=== PATIENT | female | born 1990 | race Caucasian/White ===

== ENCOUNTER 2017-10-02 13:40 | Emergency (ER) | payer MEDICAID, OTHER ==
[~2017-10-02] VITALS: Wt 64.9 kg
[2017-10-02] MEDS ORDERED: SOD CHLORIDE 0.9% 1,000 ML IV STA (14:25)
[2017-10-02] MEDS ORDERED: HYDROmorphONE 1 MG/ML SYG IV STA (14:25)
--- NOTE | 2017-10-02 14:58 | ERD ---
ER Documentation Chief Complaint Chief Complaint 12 WEEKS WITH BLEEDING TODAY HPI 27-year-old female, at 10 weeks by LMP 07/24/17, presents to the emergency department complaining of heavy bleeding that started this morning associated with passing clots and constant cramping pain, 04/13. Denies history of trauma. No fever, no chills, no urinary symptoms. Positive care. History provided by patient. ROS SYSTEMIC symptoms: no fever, chills, no night sweats, no weight loss EYE symptoms: No blurred vision, no eye discharge OTOLARYNGEAL symptoms: No hearing loss. No ear pain, no sore throat CARDIOVASCULAR symptoms: No chest pain or discomfort, no palpitations. PULMONARY symptoms: No dyspnea, no cough, no wheezing. GASTROINTESTINAL symptoms: (+) abdominal pain, no nausea, no vomiting, no diarrhea MUSCULOSKELETAL symptoms: No arthralgias, no muscle aches. NEUROLOGY symptoms: No confusion, no syncope, no numbness or tingling. SKIN: No rashes Medications Home Meds Active Scripts Hydrocodone/Acetaminophen ([place] 5-325 Tablet) 1 Each Tablet, 1 TAB PO Q6H Y for PAIN, #12 TAB Prov:ANA LUCAS MD 10/02/17 Allergies Allergies: Coded Allergies: No Known Allergies (Verified Allergy, Mild, 10/02/17) PMhx/Soc History of Surgery: Yes (c section x 3 ) Anesthesia Reaction: No Hx Neurological Disorder: No Hx Respiratory Disorders: No Hx Cardiac Disorders: No Hx Psychiatric Problems: No Hx Miscellaneous Medical Probl: No Hx Alcohol Use: No Hx Substance Use: No Hx Tobacco Use: No Physical Exam Vitals Vital Signs Date Time Temp Pulse Resp B/P Pulse Ox O2 Delivery O2 Flow Rate FiO2 10/02/17 17:58 98.6 79 16 101/46 98 Room Air 10/02/17 13:42 98.9 86 18 110/58 99 Physical Exam Patient is in moderate distress, vital signs stable. Alert and fully oriented. EYES: PERRLA, EOMI, Sclera and conjunctiva appear normal. EARS: Canals clear, tympanic membranes WNL THROAT: Normal oropharynx. NECK: Supple, No lymphadenopathy. Full ROM without pain or tenderness. HEART: RRR, no rubs, murmurs, clicks or gallops. LUNGS: Clear to auscultation. ABDOMEN: Soft, non-tender without masses or hepatosplenomegaly. EXTREMITIES: No edema bilaterally. BACK: Full ROM, no deformity, normal back exam NEURO: Cranial nerves grossly intact, no motor or sensory deficit Result Diagram: 10/02/17 1456 10/02/17 1456 Results 24 hrs Laboratory Tests Test 10/02/17 14:56 White Blood Count 9.010^3/ul Red Blood Count 4.4510^6/ul Hemoglobin 12.6g/dl Hematocrit 36.7% Mean Corpuscular Volume 82.5fl Mean Corpuscular Hemoglobin 28.3pg Mean Corpuscular Hemoglobin Concent 34.3g/dl Red Cell Distribution Width 13.3% Platelet Count 69276^3/UL Mean Platelet Volume 11.6fl Neutrophils % 65.1% Lymphocytes % 21.1% Monocytes % 6.5% Eosinophils % 6.6% Basophils % 0.4% Nucleated Red Blood Cells % 0.0/100WBC Neutrophils # 5.910^3/ul Lymphocytes # 1.910^3/ul Monocytes # 0.610^3/ul Eosinophils # 0.610^3/ul Basophils # 0.010^3/ul Nucleated Red Blood Cells # 0.010^3/ul Sodium Level 140mmol/L Potassium Level 3.3mmol/L Chloride Level 102mmol/L Carbon Dioxide Level 27mmol/L Anion Gap 14 Blood Urea Nitrogen 10mg/dl Creatinine 0.71mg/dl Glucose Level 88mg/dl Calcium Level 9.5mg/dl Total Bilirubin 0.2mg/dl Direct Bilirubin 0.00mg/dl Indirect Bilirubin 0.2mg/dl Aspartate Amino Transf (AST/SGOT) 25IU/L Alanine Aminotransferase (ALT/SGPT) 37IU/L Alkaline Phosphatase 59IU/L Total Protein 7.5g/dl Albumin 4.3g/dl Globulin 3.20g/dl Albumin/Globulin Ratio 1.34 Beta HCG, Quantitative 3901.4mIU/ml Current Medications Medications (Trade) Dose Ordered Sig/Wendi Route PRN Reason Start Time Stop Time Status Last Admin Dose Admin Sodium Chloride (NS) 1,000 ml @ 1,000 mls/hr Q1H STAT IV 10/02/17 14:25 10/02/17 15:24 DC 10/02/17 14:49 Hydromorphone HCl (Dilaudid) 0.5 mg ONCE STAT IV 10/02/17 14:25 10/02/17 14:28 DC 10/02/17 14:49 [place] [id number] Radiology Main Line: [phone] DIAGNOSTIC IMAGING REPORT Patient: RYNE VARGAS : 1990 Age: 27 Sex: F MR #: [id number] DOS: 10/02/17 1425 Ordering MD: ANA LUCAS MD Location: [facility] Room/Bed: PROCEDURE: US Pelvis. CLINICAL INDICATION: vaginal bleeding TECHNIQUE: Multiple sonographic images of the pelvis were obtained utilizing a transabdominal and endovaginal technique. The images were reviewed on a PACS workstation. COMPARISON: None. FINDINGS: The uterus is normal in size and demonstrates a normal appearance of the myometrium. The endometrial stripe is heterogeneous in appearance and has the thickness of 26 mm. There is a gestational sac with a possible pole measuring 1.8 cm in the vaginal canal, corresponding to a 8-week and 2 days gestation. No heart tones are noted. The ovaries are normal in size and echogenicity. The right ovary measures 2.9 x 1.8 x 2.0 cm. The left ovary measures 2.4 x 1.4 x 1.8 cm. No free fluid is present within the pelvis.. RPTAT: AA IMPRESSION: Findings consistent with an in progress. A possible pole versus hematoma is seen within the vaginal canal. Heterogeneous endometrium. Follow-up ultrasound and HCG levels is recommended. .Luis Valdez MD, MD Date Time Electronically viewed and signed by .Luis Valdez MD, on 10/02/2017 15: 49 .S/ CC: ANA LUCAS MD Procedures/MDM 27y/o female patient at approximately 10 weeks weeks per last menstrual period, presents to the ED c/o worsening of vaginal bleeding that started this morning associated with cramping pain and passing big clots. Vital signs stable. Differential diagnosis include but not limited to: UTI, threatening , incomplete versus complete , ectopic , physiologic implantation bleeding, molar . Pertinent Data: Labs: CBC: normal, CMP: normal kidney and liver function, normal electrolytes. During the ED course during the pelvic exam a gestational sac was observed in the vaginal canal which was carefully removed with O-ring forceps. The patient remained hemodynamically stable, cervix 1 cm open with minimal bleeding.. Results and clinical impression discussed with patient who agrees with management. The patient is stable to be treated outpatient and will be discharged home with close monitoring and follow-up in 2 days with her primary physician. Bed rest and pelvic rest recommended until further medical evaluation. The patient was instructed regarding the outcomes and the potential complications like severe bleeding. If the patient presents severe bleeding or pain, she was instructed to return to the hospital immediately. Disclaimer: Inadvertent spelling and grammatical errors are likely due to EHR/ dictation software use and do not reflect on the overall quality of patient care. Also, please note that the electronic time recorded on this note does not necessarily reflect the actual time of the patient encounter. Departure Diagnosis: Primary Impression: Inevitable Condition: Stable Additional Instructions: Call your primary care doctor TOMORROW for an appointment during the next 1-2 days. See the doctor sooner or return here if your condition worsens before your appointment time. Thank you very much for allowing us to participate in your care. Your health and safety is our top priority at [facility]. Have prescriptions filled and follow precisely the directions on the label. Follow-up with primary care provider during the next 4 days and bring all the information and medications prescribed. If illness has not improved in 2 days, then make an appointment with primary care provider. If the provider is unavailable, return to the Emergency Department immediately. ANA LUCAS MD Oct 02, 2017 14:58
[2017-10-02 15:24] LABS: BASOPHILS % 0.4 % (0.0-2.0); EOSINOPHILS # 0.6 10^3/ul (0.0-0.5); EOSINOPHILS % 6.6 % (0.0-7.0); HEMATOCRIT 36.7 % (37.0-47.0); HEMOGLOBIN 12.6 g/dl (12.0-16.0); LYMPHOCYTES # 1.9 10^3/ul (0.8-2.9); LYMPHOCYTES % 21.1 % (15.0-51.0); MEAN CORPUSCULAR HEMOGLOBIN 28.3 pg (29.0-33.0); MEAN CORPUSCULAR HGB CONC 34.3 g/dl (32.0-37.0); MEAN CORPUSCULAR VOLUME 82.5 fl (82.0-101.0); MEAN PLATELET VOLUME 11.6 fl (7.4-10.4); MONOCYTE # 0.6 10^3/ul (0.3-0.9); MONOCYTES % 6.5 % (0.0-11.0); NEUTROPHIL # 5.9 10^3/ul (1.6-7.5); NEUTROPHILS % 65.1 % (39.0-77.0); PLATELET COUNT 221 10^3/UL (140-415); RED BLOOD COUNT 4.45 10^6/ul (4.20-5.40); RED CELL DISTRIBUTION WIDTH 13.3 % (11.5-14.5)
[2017-10-02 15:48] LABS: ALBUMIN 4.3 g/dl (3.3-4.9); ALBUMIN/GLOBULIN RATIO 1.34; BILIRUBIN,INDIRECT 0.2 mg/dl (0-1.1); BILIRUBIN,TOTAL 0.2 mg/dl (0.2-1.3); CALCIUM 9.5 mg/dl (8.4-10.2); CREATININE 0.71 mg/dl (0.44-1.00); POTASSIUM 3.3 mmol/L (3.5-5.1); TOTAL PROTEIN 7.5 g/dl (6.1-8.1)
--- NOTE | 2017-10-02 15:49 | RADRPT ---
PROCEDURE: US Pelvis. CLINICAL INDICATION: vaginal bleeding TECHNIQUE: Multiple sonographic images of the pelvis were obtained utilizing a transabdominal and endovaginal technique. The images were reviewed on a PACS workstation. COMPARISON: None. FINDINGS: The uterus is normal in size and demonstrates a normal appearance of the myometrium. The endometria l stripe is heterogeneous in appearance and has the thickness of 26 mm. There is a gestational sac with a possible pole measuring 1.8 cm in the vaginal canal, corresp onding to a 8-week and 2 days gestation. No heart tones are noted. The ovaries are normal in size and echogenicity. The right ovary measures 2.9 x 1.8 x 2.0 cm. The left ovary measures 2.4 x 1.4 x 1.8 cm. No free fluid is present within the pelvis.. RPTAT: AA IMPRESSION: Findings consistent with an in progress. A possible pole versus hematoma is seen with in the vaginal canal. Heterogeneous endometrium. Follow-up ultrasound and HCG levels is recommended. .Luis Valdez MD, MD Date Time Electronically viewed and signed by .Luis Valdez MD, on 10/02/2017 15:49 .S/
[2017-10-02] MEDS ORDERED: HYDR-906 PO (17:21)
[2017-10-02 17:58] VITALS: BP 101/46; PULSE 79; RESP 16; TEMP 98.6
== END 2017-10-02 18:00 | disposition home or self-care (01) ==
LOC: FTE 13:40
DX: O03.9 Complete or unspecified spontaneous abortion without complication (principal); R10.2 Pelvic and perineal pain
CPT/HCPCS: 36415; 76801; 76817; 80053; 84702; 85025; 86900; 86901; 96374; J1170; J7030; Z7502

== ENCOUNTER 2019-02-26 22:20 | Emergency (ER) | payer SELFPAY ==
[~2019-02-26] VITALS: Wt 64.5 kg
[~2019-02-26 22:20] MED LIST: HYDR-4011 PO
[2019-02-26 22:24] VITALS: BP 124/77; PULSE 81; RESP 18
[2019-02-27] MEDS ORDERED: ACET325T33 PO (00:44)
--- NOTE | 2019-02-27 02:28 | ERD ---
ER Documentation Chief Complaint Chief Complaint L SIDE BACK PAIN X'S 4 HOURS. 19 WEEKS PG HPI 29-year-old female presenting with left-sided back pain x4 hours. Patient is about 19 weeks . She denies any abdominal pain. Denies bleeding. G5, . Patient denies any pleuritic chest pain. Patient states the pain is worse with movement. She states that extends on her left leg denies any dysuria or fevers. She has not taken medications for symptoms. Denies other medical problems. NKDA. Surgical history and breast augmentation. Social history denies ROS All systems reviewed and are negative except as per history of present illness. Medications Home Meds Active Scripts Acetaminophen* (Tylenol*) 325 Mg Tablet, 2 TAB PO Q8 PRN for PAIN AND OR ELEVATED TEMP, #20 TAB Prov:RUDDY REED PA-C 02/27/19 Hydrocodone/Acetaminophen ([place] 5-325 Tablet) 1 Each Tablet, 1 TAB PO Q6H PRN for PAIN, #12 TAB Prov:ANA LUCAS MD 10/02/17 Allergies Allergies: Coded Allergies: No Known Allergies (Verified Allergy, Mild, 10/02/17) PMhx/Soc History of Surgery: Yes (c section x 3 ) Anesthesia Reaction: No Hx Neurological Disorder: No Hx Respiratory Disorders: No Hx Cardiac Disorders: No Hx Psychiatric Problems: No Hx Miscellaneous Medical Probl: No Hx Alcohol Use: No Hx Substance Use: No Hx Tobacco Use: No Smoking Status: Never smoker FmHx Family History: No diabetes, No coronary disease, No other Physical Exam Vitals Vital Signs Date Temp Pulse Resp B/P (MAP) Pulse Ox O2 O2 Flow FiO2 Time Delivery Rate 02/26/19 98.0 81 18 124/77 99 22:24 (93) Physical Exam GENERAL: The patient is well-appearing, well-nourished, in no acute distress CHEST: Clear to auscultation bilaterally. There are no rales, wheezes or rhonch i. HEART: Regular rate and rhythm. No murmurs, clicks, rubs or gallops. No S3 or S4. ABDOMEN:Soft, nontender and nondistended. Good bowel sounds. No rebound or guarding. No gross peritonitis. No gross organomegaly or masses. BACK: No midline or flank tenderness. Tender to palpation down the left buttock extending down the left leg. EXTREMITIES: Equal pulses bilaterally. There is no peripheral clubbing, cyanosis or edema. No focal swelling or erythema. Full range of motion. Grossly neurovascularly intact. NEUROLOGIC: Alert and oriented. Cranial nerves II through XII intact. Motor strength in all 4 extremities with 5 out of 5 strength. Sensation grossly intact. Normal speech and gait. SKIN: There is no apparent rash or petechiae. The skin is warm and dry. Results 24 hrs Laboratory Tests Test 02/27/19 00:39 Bedside Urine pH (LAB) 5.5 Bedside Urine Protein (LAB) Negative Bedside Urine Glucose (UA) Negative Bedside Urine Ketones (LAB) Negative Bedside Urine Blood Negative Bedside Urine Nitrite (LAB) Negative Bedside Urine Leukocyte Esterase (L Negative Procedures/MDM ER course: Urinalysis negative. MDM: 29-year-old female presenting with back pain. I believe that pain is associated with nerve inflammation and sciatica pain. I have low suspicion for infectious etiology. I will suspicion for abdominal or pelvic emergency. Patient is discharged with strict ER precautions and told to follow-up with primary care all questions answered at discharge Departure Diagnosis: Primary Impression: Sciatica Condition: Stable Patient Instructions: Back Pain W/ Sciatica Referrals: COMM[facility]ITY CL[facility] YOU HAVE RECEIVED A MEDICAL SCREENING EXAM AND THE RESULTS INDICATE THAT YOU DO NOT HAVE A CONDITION THAT REQUIRES URGENT TREATMENT IN THE EMERGENCY DEPARTMENT. FURTHER EVALUATION AND TREATMENT OF YOUR CONDITION CAN WAIT UNTIL YOU ARE SEEN IN YOUR DOCTORS OFFICE WITHIN THE NEXT 1-2 DAYS. IT IS YOUR RESPONSIBILITY TO MAKE AN APPOINTMENT FOR FOLOW-UP CARE. IF YOU HAVE A PRIMARY DOCTOR --you should call your primary doctor and schedule an appointment IF YOU DO NOT HAVE A PRIMARY DOCTOR YOU CAN CALL OUR PHYSICIAN REFERRAL HOTLINE AT IF YOU CAN NOT AFFORD TO SEE A PHYSICIAN YOU CAN CHOSE FROM THE FOLLOWING [facility] [address] [place]. [facility] [address] [facility] [address] [facility] [address] [facility] [address] [facility]. [facility]. [address] Additional Instructions: FOLLOW UP WITH YOUR PRIMARY CARE PHYSICIAN TOMORROW.Return to this facility if you are not improving as expected. RUDDY REED PA-C Feb 27, 2019 02:28
== END 2019-02-27 00:51 | disposition home or self-care (01) ==
LOC: FTE 22:20
DX: O99.89 Other specified diseases and conditions complicating pregnancy, childbirth and the puerperium (principal); M54.32 Sciatica, left side; Z3A.19 19 weeks gestation of pregnancy
CPT/HCPCS: 81003; 99282